=== PATIENT | female | born 1930 | race Caucasian/White ===

== ENCOUNTER → 2016-12-05 | Outpatient (CLI) | payer MEDICARE, OTHER | END | disposition home or self-care (01) | LOC: YCHH 09:07 | PROVIDERS: ATTEND Family Medicine | DX: I12.9 Hypertensive chronic kidney disease with stage 1 through stage 4 chronic kidney disease, or unspecified chronic kidney disease (principal); N18.9 Chronic kidney disease, unspecified; R53.82 Chronic fatigue, unspecified; D64.9 Anemia, unspecified; R26.81 Unsteadiness on feet ==

== ENCOUNTER 2018-06-17 09:04 | Emergency (ER) | payer MEDICARE, OTHER ==
--- NOTE | 2018-06-17 09:43 | ED.PDOC ---
History of Present Illness - General Chief Complaint: General Stated Complaint: ELEVTED BP Time Seen by Provider: 06/17/18 09:33 Source: patient Exam Limitations: no limitations - History of Present Illness Initial Comments: Patient is an 87 yo with poorly controlled hypertension who presents after "feeling funny" this morning. She had not taken her morning blood pressure pill s, yet. She says she has an AAA but is not having any pain in her abdomen. She gets it checked every 6 months. Denies chest pain. Denies history of COPD. She has had intermittent bipedal edema in the past but says her medications control that. No other complaints. Timing/Duration: 4-6 hours Severity: mild Improving Factors: nothing Worsening Factors: nothing Associated Symptoms: denies symptoms Allergies/Adverse Reactions: Allergies NO KNOWN ALLERGY Allergy (Verified 06/17/18 09:18) Home Medications: Ambulatory Orders Atenolol [Tenormin] 50 mg PO BID 02/15/16 Clonidine HCl 0.2 mg PO TID 02/15/16 Olmesartan Medoxomil-Hydrochlo [Benicar Hct 20-12.5 mg] 1 tab PO DAILY 06/17/18 Review of Systems - Review of Systems Constitutional: States: no symptoms reported - in HPI, other EENTM: States: no symptoms reported Respiratory: States: no symptoms reported Cardiology: States: no symptoms reported Gastrointestinal/Abdominal: States: no symptoms reported Genitourinary: States: no symptoms reported Musculoskeletal: States: no symptoms reported Skin: States: no symptoms reported Neurological: States: no symptoms reported Endocrine: States: no symptoms reported Hematologic/Lymphatic: States: no symptoms reported Past Medical History (General) - Patient Medical History Hx Seizures: No Hx Stroke: No Hx Dementia: No Hx Asthma: No Hx of COPD: No Hx Cardiac Disorders: Yes Hx Congestive Heart Failure: No Hx Pacemaker: No Hx Hypertension: Yes Hx Thyroid Disease: No Hx Diabetes: No Hx Gastroesophageal Reflux: No Hx Renal Disease: No Hx Cancer: Yes - Cervical Hx of HIV: No Hx Hepatitis C: No Hx MRSA: No Surgical History: appendectomy - Vaccination History Hx Tetanus, Diphtheria Vaccination: No Hx Influenza Vaccination: No Hx Pneumococcal Vaccination: No - Social History Hx Tobacco Use: No Hx Chewing Tobacco Use: No Hx Alcohol Use: No Hx Substance Use: No Hx Substance Use Treatment: No Hx Depression: No Hx Physical Abuse: No Hx Emotional Abuse: No Hx Suspected Abuse: No - Female History Patient is a Female of Child Bearing Age (10 -59 yrs old): No Patient : No Family Medical History - Family History Mother Family History: Unknown Living Status: Physical Exam - Physical Exam General Appearance: Alert Ears, Nose, Throat: normal ENT inspection, normal pharynx Neck: non-tender, full range of motion, supple Respiratory: lungs clear, normal breath sounds Cardiovascular/Chest: normal peripheral pulses, regular rate, rhythm, no edema Gastrointestinal/Abdominal: normal bowel sounds, non tender, soft Extremity: normal range of motion, non-tender, normal inspection Neurologic: no motor/sensory deficits, alert, normal mood/affect, oriented x 3 Skin Exam: normal color Progress - Progress Progress: 06/17/18 10:54 Laboratory Tests 06/17/18 06/17/18 06/17/18 09:39 09:40 09:40 WBC 6.8 RBC 4.30 Hgb 11.7 L Hct 36.2 MCV 84.2 MCH 27.2 MCHC 32.4 L RDW 16.2 H Plt Count 221 MPV 7.9 Absolute Neuts (auto) 5.10 Absolute Lymphs (auto) 0.90 L Absolute Monos (auto) 0.60 Absolute Eos (auto) 0.10 Absolute Basos (auto) 0.00 Neutrophils % 74.8 Lymphocytes % 13.8 L Monocytes % 9.5 H Eosinophils % 1.5 Basophils % 0.4 Sodium 137 Potassium 4.1 Chloride 101 Carbon Dioxide 28 Anion Gap 12.1 BUN 20 H Creatinine 1.14 BUN/Creatinine Ratio 17.5 Random Glucose 111 H Serum Osmolality 277.1 Calcium 8.6 Total Bilirubin 0.8 AST 27 ALT 29 Alkaline Phosphatase 88 Creatine Kinase 27 CK-MB (CK-2) 2.0 CK-MB (CK-2) % Not Reportable Troponin I 0.02 B-Natriuretic Peptide 1780.0 H* Serum Total Protein 7.0 Albumin 3.2 Globulin 3.8 H Albumin/Globulin Ratio 0.8 L Urine Color Urine Appearance Urine pH Ur Specific [place] Urine Protein Urine Glucose (UA) Urine Ketones Urine Blood Urine Nitrite Urine Bilirubin Urine Urobilinogen Ur Leukocyte Esterase Urine RBC Urine WBC Ur Epithelial Cells Urine Bacteria 06/17/18 09:50 WBC RBC Hgb Hct MCV MCH MCHC RDW Plt Count MPV Absolute Neuts (auto) Absolute Lymphs (auto) Absolute Monos (auto) Absolute Eos (auto) Absolute Basos (auto) Neutrophils % Lymphocytes % Monocytes % Eosinophils % Basophils % Sodium Potassium Chloride Carbon Dioxide Anion Gap BUN Creatinine BUN/Creatinine Ratio Random Glucose Serum Osmolality Calcium Total Bilirubin AST ALT Alkaline Phosphatase Creatine Kinase CK-MB (CK-2) CK-MB (CK-2) % Troponin I B-Natriuretic Peptide Serum Total Protein Albumin Globulin Albumin/Globulin Ratio Urine Color Yellow Urine Appearance Clear Urine pH 6.5 Ur Specific [place] 1.020 Urine Protein 30 Urine Glucose (UA) Negative Urine Ketones Negative Urine Blood Trace-lysed H Urine Nitrite Negative Urine Bilirubin Negative Urine Urobilinogen 0.2 Ur Leukocyte Esterase Negative Urine RBC 0-1 Urine WBC 0 Ur Epithelial Cells 0-1 Urine Bacteria 0 CXR showed no acute disease. BNP 1780. Patient did not have dyspnea. This may be her baseline BNP. Her blood pressure returned to her baseline after she took her morning medications. EKG showed atrial fibrillation with slow ventricular response. I contacted her aquatics manager's office and spoke with the TREASURY REPRESENTATIVE, Lizzy. I faxed the EKGs to them and it was confirmed that this was a new onset atrial fibrillation. Her blood pressure went back up to 205/106. It fluctuated by up to 70 points even after she had taken her morning medications. The patient expressed a desire to go to [facility] and her aquatics manager's TREASURY REPRESENTATIVE recommended that as well. Patient transferred to [facility] for new onset atrial fibrillation and hypertension. 06/17/18 13:10 Departure - Departure Clinical Impression: Atrial fibrillation with slow ventricular response, Hypertensive urgency Disposition: Transfer to Hospital Condition: Fair Departure Forms: ED Discharge - Pt. Copy, Patient Portal Self Enrollment Diet: other - NPO Activity: other - as per hospitalist Referrals: SHEEBA MARTINEZ [Primary Care Provider] - 1-2 Weeks Home Medications: Ambulatory Orders Atenolol [Tenormin] 50 mg PO BID 02/15/16 Clonidine HCl 0.2 mg PO TID 02/15/16 Olmesartan Medoxomil-Hydrochlo [Benicar Hct 20-12.5 mg] 1 tab PO DAILY 06/17/18
--- NOTE | 2018-06-17 10:01 | RAD ---
Study: Single Frontal View of the Chest. Indication:hypertension, "strange feeling" Comparison: None. Impression: Cardiomegaly. Thoracic aorta tortuous. Prominence of the right paratracheal stripe a right suprahilar region. Further characterization with contrast enhanced CT chest recommended to exclude underlying lymphadenopathy. Mild interstitial edema throughout the lungs with mild bibasilar atelectasis. Tiny left pleural effusion suspected. No pneumothorax. Osteopenia. If this is a new finding, DEXA scan recommended as well as evaluation for possible osteoporosis treatment. Electronically signed by: Jaren Aragon MD 06/17/2018 10:00 AM [facility]
[2018-06-17 12:53] VITALS: O2SAT 98
[2018-06-17 13:10] VITALS: TEMP 98.2
[2018-06-17] MEDS ORDERED: cloNIDine HCL 0.1 MG TAB ONE (13:19)
[2018-06-17] MEDS ORDERED: cloNIDine HCL 0.1 MG TAB PO ONE (13:22)
[2018-06-17 13:34] VITALS: BP 204/106
== END 2018-06-17 13:34 | disposition short-term general hospital (02) ==
LOC: ER 09:04
DX: I48.91 Unspecified atrial fibrillation (principal); I16.0 Hypertensive urgency; R00.1 Bradycardia, unspecified; I51.9 Heart disease, unspecified; Z85.41 Personal history of malignant neoplasm of cervix uteri; Z79.899 Other long term (current) drug therapy

== ENCOUNTER → 2018-11-08 | Outpatient (CLI) | payer MEDICARE ==
--- NOTE | 2018-11-11 07:58 | RAD ---
EXAM DESCRIPTION: Wrist,Right 3 Views CLINICAL HISTORY: 88 years Female, M25.532 COMPARISON: October 30, 2018 FINDINGS: Again seen is an impacted distal left radial fracture with intra-articular extension and mild comminution, unchanged from the previous study. The fracture remains at least partially nonunited. No new fracture or malalignment. IMPRESSION: Distal left radial fracture as detailed above, not significantly changed from October 30, 2018. Electronically signed by: Konstantin Cunningham MD 11/11/2018 7:56 AM CDT
== END ==
LOC: RAD 08:32
PROVIDERS: ATTEND Orthopaedic Surgery
DX: S52.591A Other fractures of lower end of right radius, initial encounter for closed fracture (principal)

== ENCOUNTER → 2018-11-15 | Outpatient (CLI) | payer MEDICARE | LOC: RAD 10:40 | PROVIDERS: ATTEND Orthopaedic Surgery | DX: S52.591D Other fractures of lower end of right radius, subsequent encounter for closed fracture with routine healing (principal); S63.592D Other specified sprain of left wrist, subsequent encounter; M19.042 Primary osteoarthritis, left hand; M79.89 Other specified soft tissue disorders ==

== ENCOUNTER → 2018-11-27 | Outpatient (CLI) | payer MEDICARE ==
--- NOTE | 2018-11-28 18:43 | US ---
EXAM DESCRIPTION: Venous,Upper Extremity LT: ULTRASOUND. CLINICAL HISTORY: SWELLING COMPARISON: Radiographs of the wrist on the same visit. TECHNIQUE: Two -dimensional and doppler sonographic evaluation of the deep venous system of the right upper extremity. FINDINGS: Doppler evaluation shows normal color flow and normal phasicity and augmentation of the right subclavian, jugular, axillary, basilic, cephalic, brachial, radial vein and ulnar vein. The right upper extremity deep veins showed normal occlusion with transducer pressure. Two-dimensional survey showed no echogenic thrombus within these veins. IMPRESSION: Duplex ultrasound evaluation of the right upper extremity deep venous system showing no venous thrombosis . Electronically signed by: Ramos Cartagena MD 11/28/2018 6:41 PM CDT
--- NOTE | 2018-11-28 18:50 | RAD ---
EXAM DESCRIPTION: Wrist,Left 3 Views: CR/DR/XR CLINICAL HISTORY: 88 years Female PAIN IN LEFT WRIST COMPARISON: Left wrist radiographs 11/15/2018. TECHNIQUE: 3 VIEWS left wrist AP. Lateral. Oblique. FINDINGS: Again noted is comminuted fracture of the distal left radius with fracture involving the radiocarpal joint and dorsiflexion and radial deviation of the distal left radial fracture components. Minimal callus formation and sclerosis of the fracture lines. Again noted also is widening of the scapholunate joint most likely due to disruption of the ligament. Distal left ulna is intact. Overall bone density is decreased. Moderate arthrosis again seen in the thumb carpometacarpal joint. Hyperextension again seen in the thumb metacarpal phalangeal joint. IMPRESSION: Comminuted fracture of the distal left radius with dorsal and radial deviation but no radiocarpal dislocation. Narrowing of the radial scaphoid joint. Minimal callus formation and sclerosis of the fracture lines. Rupture of the scapholunate ligament and widening of the joint space. Bone density loss. Moderate arthrosis thumb carpometacarpal joint with hyperextension metacarpal phalangeal joint.. Electronically signed by: Ramos Cartagena MD 11/28/2018 6:48 PM CDT
== END ==
LOC: RAD 13:53
PROVIDERS: ATTEND Orthopaedic Surgery
DX: S52.502A Unspecified fracture of the lower end of left radius, initial encounter for closed fracture (principal); S63.392A Traumatic rupture of other ligament of left wrist, initial encounter; R22.32 Localized swelling, mass and lump, left upper limb

== ENCOUNTER → 2018-11-27 | Outpatient (CLI) | payer MEDICARE | LOC: YCHH 10:55 | PROVIDERS: ATTEND Family Medicine | DX: D64.9 Anemia, unspecified (principal); N18.9 Chronic kidney disease, unspecified ==

== ENCOUNTER → 2018-12-23 | Outpatient (CLI) | payer MEDICARE ==
--- NOTE | 2018-12-23 13:47 | RAD ---
EXAM DESCRIPTION: Wrist,Left 3 Views CLINICAL HISTORY: 88 years, Female, S52.502D COMPARISON: Left wrist radiograph 11/27/2018. Technique: Frontal lateral and oblique views of the left wrist was obtained. FINDINGS/IMPRESSION: Images of the left wrist redemonstrate healing impacted distal radius intra-articular fracture with mild increased sclerosis and callus formation and stable osseous alignment. Unchanged scapholunate dissociation, severe left thumb CMC joint osteoarthrosis, and diffuse osteopenia. Electronically signed by: Loi Torres DO 12/23/2018 1:45 PM CDT
== END ==
LOC: RAD 10:04
PROVIDERS: ATTEND Orthopaedic Surgery
DX: S52.502D Unspecified fracture of the lower end of left radius, subsequent encounter for closed fracture with routine healing (principal); M85.832 Other specified disorders of bone density and structure, left forearm

== ENCOUNTER → 2019-01-09 | Outpatient (CLI) | payer MEDICARE | LOC: YCHH 10:58 | PROVIDERS: ATTEND Family Medicine | DX: N18.9 Chronic kidney disease, unspecified (principal); D64.9 Anemia, unspecified ==

== ENCOUNTER → 2019-01-30 | Outpatient (CLI) | payer MEDICARE | LOC: YCHH 10:51 | PROVIDERS: ATTEND Family Medicine | DX: N18.9 Chronic kidney disease, unspecified (principal); D50.8 Other iron deficiency anemias ==

== ENCOUNTER → 2019-03-13 | Outpatient (CLI) | payer MEDICARE | LOC: YCHH 11:26 | PROVIDERS: ATTEND Family Medicine | DX: N18.9 Chronic kidney disease, unspecified (principal); D64.9 Anemia, unspecified ==

== ENCOUNTER → 2019-06-18 | Outpatient (CLI) | payer MEDICARE | LOC: YCHH 11:11 | PROVIDERS: ATTEND Family Medicine | DX: N18.9 Chronic kidney disease, unspecified (principal); D64.9 Anemia, unspecified; E78.5 Hyperlipidemia, unspecified ==

== ENCOUNTER → 2019-09-24 | Outpatient (CLI) | payer MEDICARE | LOC: YCHH 08:55 | PROVIDERS: ATTEND Family Medicine | DX: M06.9 Rheumatoid arthritis, unspecified (principal); I50.22 Chronic systolic (congestive) heart failure; E53.8 Deficiency of other specified B group vitamins; E87.6 Hypokalemia; D64.9 Anemia, unspecified; D50.9 Iron deficiency anemia, unspecified ==

== ENCOUNTER → 2019-10-06 | Outpatient (CLI) | payer MEDICARE | LOC: YCHH 09:48 | PROVIDERS: ATTEND Family Medicine | DX: R19.5 Other fecal abnormalities (principal) ==

== ENCOUNTER → 2019-10-30 | Outpatient (CLI) | payer MEDICARE | LOC: YCHH 11:32 | PROVIDERS: ATTEND Family Medicine | DX: D64.9 Anemia, unspecified (principal); R79.89 Other specified abnormal findings of blood chemistry; E61.1 Iron deficiency ==

== ENCOUNTER → 2020-02-16 | Outpatient (CLI) | payer MEDICARE | LOC: YCHH 11:44 | PROVIDERS: ATTEND Family Medicine | DX: D64.9 Anemia, unspecified (principal); N18.9 Chronic kidney disease, unspecified ==

== ENCOUNTER → 2020-04-30 | Outpatient (CLI) | payer MEDICARE | LOC: YCHH 10:52 | PROVIDERS: ATTEND Family Medicine | DX: N18.9 Chronic kidney disease, unspecified (principal); D50.8 Other iron deficiency anemias; D64.9 Anemia, unspecified ==

== ENCOUNTER → 2020-07-07 | Outpatient (CLI) | payer MEDICARE | LOC: YCHH 10:25 | PROVIDERS: ATTEND Family Medicine | DX: N18.9 Chronic kidney disease, unspecified (principal); D64.9 Anemia, unspecified; D50.8 Other iron deficiency anemias ==